=== PATIENT | male | born 1990 | race Two or more races ===

== ENCOUNTER 2020-11-22 00:40 | Emergency (ER) | payer BC ==
[~2020-11-22] VITALS: Ht 180.3 cm; Wt 74.8 kg
[2020-11-22 01:08] VITALS: BP 146/80
[2020-11-22] MEDS ORDERED: LIDOCAINE 1%-EPI 1:100,000 20 ML VIAL ONE (01:25)
== END 2020-11-22 01:43 | disposition home or self-care (01) ==
LOC: EDBD 00:44 → ER 00:44
DX: S01.81XA Laceration without foreign body of other part of head, initial encounter (principal); W22.8XXA Striking against or struck by other objects, initial encounter; Y93.01 Activity, walking, marching and hiking; Y92.89 Other specified places as the place of occurrence of the external cause; Y99.8 Other external cause status
CPT/HCPCS: 99282; J3490